=== PATIENT | female | born 1995 | race Two or more races ===

== ENCOUNTER 2019-05-01 13:15 | Emergency (ER) | payer OTHER ==
[~2019-05-01] VITALS: Ht 162.6 cm; Wt 83.0 kg
== END 2019-05-01 16:05 | disposition home or self-care (01) ==
LOC: ER 13:15
DX: H92.01 Otalgia, right ear (principal); M54.89 Other dorsalgia; R68.83 Chills (without fever)

== ENCOUNTER → 2019-06-15 | Outpatient (CLI) | payer OTHER | END | disposition home or self-care (01) | LOC: NST 17:44 | DX: Z34.83 Encounter for supervision of other normal pregnancy, third trimester (principal) ==

== ENCOUNTER 2019-07-05 08:12 | Inpatient (IN) | payer OTHER ==
[~2019-07-05] VITALS: Ht 162.6 cm; Wt 89.4 kg
[2019-07-05] MEDS ORDERED: VALTREX1000 MG PO (09:27)
[2019-07-05] MEDS ORDERED: OBSTETRIX DHA1 EACH PO (09:27)
[2019-07-07] MEDS ORDERED: IBUPROFEN800 MG PO (12:37)
== END 2019-07-07 13:56 | DRG 798 ==
LOC: OB/GYN 08:12 → LDR 08:12 → OB/GYN 17:33
PROVIDERS: ADMIT Obstetrics & Gynecology
PROC: 10E0XZZ Delivery of Products of Conception, External Approach (ICD-10-PCS; principal; 2019-07-05)
PROC: 4A1HXCZ Monitoring of Products of Conception, Cardiac Rate, External Approach (ICD-10-PCS; 2019-07-05)
PROC: 3E033VJ Introduction of Other Hormone into Peripheral Vein, Percutaneous Approach (ICD-10-PCS; 2019-07-05)
PROC: 0UB70ZZ Excision of Bilateral Fallopian Tubes, Open Approach (ICD-10-PCS; 2019-07-06)
DX: O80 Encounter for full-term uncomplicated delivery (principal); Z37.0 Single live birth; Z3A.39 39 weeks gestation of pregnancy; Z30.2 Encounter for sterilization

== ENCOUNTER 2023-06-11 08:54 | Emergency (ER) | payer OTHER ==
[~2023-06-11] VITALS: Ht 160 cm; Wt 71.7 kg
[~2023-06-11 08:54] MED LIST: IBUPROFEN800 MG PO; OBSTETRIX DHA1 EACH PO; VALTREX1000 MG PO
[2023-06-11] MEDS ORDERED: ONZETRA XSAIL11 MG (09:07)
[2023-06-11] MEDS ORDERED: MOTRIN IB200 MG (09:08)
== END 2023-06-11 12:50 | disposition home or self-care (01) ==
LOC: ER 08:54
DX: R10.9 Unspecified abdominal pain (principal); Z91.013 Allergy to seafood; T50.995A Adverse effect of other drugs, medicaments and biological substances, initial encounter
CPT/HCPCS: 96365; 96366; 99284; J2405; J3490